=== PATIENT | female | born 1955 | race African-American/Black ===

== ENCOUNTER 2016-08-27 12:16 | Emergency (ER) | payer BC ==
[~2016-08-27 12:16] MED LIST: ALBUTEROL NEBS; ASAB PO; CEFT5 PO; COMBIVENT RESPIM4 GM INH; HALF81 PO; HCTZ; HYDROCHLOROT12.5 MG PO; HYDROCHLOROT25 MG PO; K-TABS10 MEQ PO; LORT7 PO; LOTE20 PO; LOTE40 PO; LOTREL; LOTREL1 CA4 PO; MIRALAXPKT PO; MUCINEX600 MG PO; NORCO1 TA2 PO; NORCO1 TAB PO; NORV10 PO; PROTONIX PO; PROVHFA INH; REFENESEN400 MG PO; TESS PO; Z-PAK PO; ZOCOR20 PO
== END 2016-08-27 14:00 | disposition home or self-care (01) ==
LOC: ER 12:16
DX: M25.561 Pain in right knee (principal); I10 Essential (primary) hypertension; J45.909 Unspecified asthma, uncomplicated; D64.9 Anemia, unspecified; Z85.3 Personal history of malignant neoplasm of breast; Z88.6 Allergy status to analgesic agent; Z88.5 Allergy status to narcotic agent; Z79.82 Long term (current) use of aspirin; Z79.899 Other long term (current) drug therapy
CPT/HCPCS: 73560-RT; 93971; 99284

== ENCOUNTER 2016-12-03 17:56 | Emergency (ER) | payer BC ==
[2016-12-03 21:44] LABS: HEMATOCRIT 32.5 % (36.0-48.0); HEMOGLOBIN 10.1 g/dL (12.0-16.0); MEAN CORPUS HGB CONC 31.1 g/dL (32.0-36.0); MEAN CORPUSCULAR HEMOGLOB 25.8 pg (26.0-34.0); MEAN CORPUSCULAR VOLUME 83.1 fL (80-100); PLATELET COUNT 361 10/3/uL (150-400); RBC DISTRIBUTION WIDTH 17.3 % (12.0-16.0); RED CELL COUNT 3.91 10/6/uL (4.0-5.6); WHITE BLOOD CELLS 10.4 10/3/uL (4.5-10.5)
[2016-12-03 21:53] LABS: INTERNATIONAL NORMAL RATI 1.3 UNITS (-); PARTIAL THROMBO TIME 34.7 SEC (22.5-37.2); PROTIME (NOT ORD) 16.3 SEC (12.0-14.5)
[2016-12-03 22:01] LABS: BAND NEUTROPHILS 5 %; EOSINOPHILS 2 %; EOSINOPHILS ABSOLUTE (CALC) 0.21 10/3/uL (0.0-0.53); LYMPHOCYTES 23 %; LYMPHOCYTES ABSOLUTE (CALC) 2.39 10/3/uL (0.67-4.30); MONOCYTES 4 %; MONOCYTES ABSOLUTE (CALC) 0.42 10/3/uL (0.21-1.20); NEUTROPHILS ABSOLUTE (CALC) 7.38 10/3/uL (2.02-8.40); PLATELET ESTIMATE ADQ (ADEQUATE); SEGMENTED NEUTROPHIL (0) 66 %; TOTAL NUCLEATED CELLS 100
[2016-12-03 22:02] LABS: ANISOCYTOSIS 1+ (5-10/OIF) (0-5/OIF); HYPOCHROMIA 1+ (3-10/OIF) (0-2/OIF); MICROCYTES 1+ (5-10/OIF) (0-5/OIF)
[2016-12-03 22:05] LABS: CALCIUM, SERUM 8.9 MG/DL (8.5-10.4); CHLORIDE, SERUM 107 MMOL/L (96-112); CREATININE 0.95 MG/DL (0.55-1.02); GFR AFRICAN AMERICAN 74 ML/MIN (>=60); GFR NON AFRICAN AMERICAN 64 ML/MIN (>=60); POTASSIUM, SERUM 3.8 MMOL/L (3.5-5.3); SGOT(AST) 17 U/L (5-40); SGPT(ALT) 23 U/L (5-65); SODIUM, SERUM 144 MMOL/L (135-148); TOTAL BILIRUBIN 0.6 MG/DL (0-1.2); TOTAL PROTEIN 6.7 G/DL (6.0-8.5)
[2016-12-03 22:06] LABS: A/G RATIO 0.8 (0.7-1.9); ALKALINE PHOSPHATASE 129 U/L (45-117); BUN (BLOOD UREA NITROGEN) 16 MG/DL (6-23); CO2 (CARBON DIOXIDE) 32 MMOL/L (24-34); GLOBULIN 3.7 G/DL (2.5-4.1); GLUCOSE, SERUM 95 MG/DL (60-99)
[2016-12-03 22:09] LABS: DIFFERENTIAL ORDERED Y
== END 2016-12-03 23:54 | disposition home or self-care (01) ==
LOC: ER 17:56
PROVIDERS: Hospitalist
DX: S00.93XA Contusion of unspecified part of head, initial encounter (principal); S80.01XA Contusion of right knee, initial encounter; S70.01XA Contusion of right hip, initial encounter; J45.909 Unspecified asthma, uncomplicated; D64.9 Anemia, unspecified; I10 Essential (primary) hypertension; Z85.3 Personal history of malignant neoplasm of breast; Z87.01 Personal history of pneumonia (recurrent); Z90.710 Acquired absence of both cervix and uterus; Z86.718 Personal history of other venous thrombosis and embolism; Z88.5 Allergy status to narcotic agent; Z88.6 Allergy status to analgesic agent; Z79.82 Long term (current) use of aspirin; Z79.899 Other long term (current) drug therapy; W10.9XXA Fall (on) (from) unspecified stairs and steps, initial encounter
CPT/HCPCS: 70450; 72125; 72192; 73502-RT; 73560-RT; 80053; 85007; 85027; 85610; 85730; 99284; A9270-GY